=== PATIENT | male | born 1965 | race Caucasian/White ===

== ENCOUNTER → 2017-07-31 | Outpatient (CLI) | payer OTHER, BC ==
[~2017-07-31] MED LIST: AMOCLA875 PO; HYDACE5 PO; IBUP800; RXHYDACE PO; [UNRECOGNIZED DRUG - REMARK]
[2017-07-31 10:53] LABS: BASOPHILS ABSOLUTE AUTO 0.05 K/mm3 (0.00-0.23); BASOPHILS PERCENT AUTO 1 % (0-2); EOSINOPHILS ABSOLUTE AUTO 0.21 K/mm3 (0.00-0.68); EOSINOPHILS PERCENT AUTO 3 % (0-6); Hematocrit 46.5 % (37.0-53.0); Hemoglobin 16.5 g/dL (13.5-17.5); IMMATURE GRAN ABSOLUTE AUTO 0.02 K/mm3 (0.00-0.10); IMMATURE GRAN PERCENT AUTO 0 % (0-1); LYMPHOCYTES ABSOLUTE AUTO 2.45 K/mm3 (0.84-5.20); LYMPHOCYTES PERCENT AUTO 35 % (21-46); MONOCYTES ABSOLUTE AUTO 0.98 K/mm3 (0.16-1.47); MONOCYTES PERCENT AUTO 14 % (4-13); Mean Corpuscular HGB 31.8 pg (26.0-34.0); Mean Corpuscular HGB Conc 35.5 g/dL (31.5-36.5); Mean Corpuscular Volume 90 fL (80-100); Mean Platelet Volume 8.8 fL (9.1-12.4); NEUTROPHILS PERCENT AUTO 48 % (41-73); Platelet Count 277 K/mm3 (150-400); RDW Coefficient Variation 12.5 % (11.7-14.2); RDW Standard Deviation 41.1 fL (35.1-46.3); Red Blood Cell Count 5.19 M/mm3 (4.30-5.90); White Blood Cell Count 7.11 K/mm3 (4.00-11.30)
[2017-07-31 11:02] LABS: Alanine Aminotransfer (ALT/SGP 28 U/L (12-78); Albumin, Blood 3.6 g/dL (3.4-5.0); Alk Phos 69 U/L (40-126); Anion Gap 9 mmol/L (6-16); Aspartate Aminotrans (AST/SGOT 17 U/L (12-37); Bilirubin, Total 0.4 mg/dL (0.1-1.0); Blood Urea Nitrogen 13 mg/dL (8-24); Bun/Creatinine Ratio 13.3 (12.0-20.0); CO2, Blood 27 mmol/L (21-32); Calcium, Blood 9.2 mg/dL (8.5-10.1); Chloride, Blood 104 mmol/L (98-108); Creatinine, Blood 0.98 mg/dL (0.60-1.20); Globulin, Blood 3.7 g/dL (2.2-4.0); Glomerular Filtration Rate >60 (60-); Glucose, Blood 86 mg/dL (70-99); Potassium, Blood 4.4 mmol/L (3.5-5.5); Sodium, Blood 140 mmol/L (136-145); Total Protein, Blood 7.3 g/dL (6.4-8.2)
== END ==
LOC: LAB EV 10:47 → LAB SHORT 10:47
PROVIDERS: Physician Assistant Medical
DX: R10.84 Generalized abdominal pain (principal)
CPT/HCPCS: 80053; 83690; 85025

== ENCOUNTER → 2017-12-07 | Outpatient (CLI) | payer OTHER, BC | END | disposition home or self-care (01) | LOC: LAB EV 15:21 → LAB SHORT 15:21 | DX: R53.81 Other malaise (principal) | CPT/HCPCS: 87070 ==

== ENCOUNTER 2018-06-18 16:14 | Emergency (ER) | payer OTHER, BC ==
[~2018-06-18] VITALS: Ht 177.8 cm; Wt 99.8 kg
[2018-06-18 17:28] LABS: BASOPHILS ABSOLUTE AUTO 0.05 K/mm3 (0.00-0.23); BASOPHILS PERCENT AUTO 1 % (0-2); EOSINOPHILS ABSOLUTE AUTO 0.14 K/mm3 (0.00-0.68); EOSINOPHILS PERCENT AUTO 2 % (0-6); Hematocrit 46.5 % (37.0-53.0); Hemoglobin 16.1 g/dL (13.5-17.5); IMMATURE GRAN ABSOLUTE AUTO 0.03 K/mm3 (0.00-0.10); IMMATURE GRAN PERCENT AUTO 0 % (0-1); LYMPHOCYTES PERCENT AUTO 34 % (21-46); MONOCYTES ABSOLUTE AUTO 1.05 K/mm3 (0.16-1.47); MONOCYTES PERCENT AUTO 12 % (4-13); Mean Corpuscular HGB 31.5 pg (26.0-34.0); Mean Corpuscular HGB Conc 34.6 g/dL (31.5-36.5); Mean Corpuscular Volume 91 fL (80-100); Mean Platelet Volume 8.5 fL (9.1-12.4); NEUTROPHILS ABSOLUTE AUTO 4.38 K/mm3 (1.96-9.15); NEUTROPHILS PERCENT AUTO 51 % (41-73); Platelet Count 322 K/mm3 (150-400); RDW Coefficient Variation 12.5 % (11.7-14.2); RDW Standard Deviation 42.1 fL (35.1-46.3); Red Blood Cell Count 5.11 M/mm3 (4.30-5.90); White Blood Cell Count 8.55 K/mm3 (4.00-11.30)
[2018-06-18 17:50] LABS: Alanine Aminotransfer (ALT/SGP 66 U/L (12-78); Albumin/Globulin Ratio 1.2 (0.8-1.8); Alk Phos 74 U/L (50-136); Anion Gap 5 mmol/L (6-16); Aspartate Aminotrans (AST/SGOT 29 U/L (12-37); Bilirubin, Total 0.3 mg/dL (0.1-1.0); Blood Urea Nitrogen 13 mg/dL (8-24); Bun/Creatinine Ratio 15.7 (12.0-20.0); CO2, Blood 26 mmol/L (21-32); Calcium, Blood 8.9 mg/dL (8.5-10.1); Chloride, Blood 110 mmol/L (98-108); Creatinine, Blood 0.83 mg/dL (0.60-1.20); Globulin, Blood 3.2 g/dL (2.2-4.0); Glomerular Filtration Rate >60 (60-); Glucose, Blood 95 mg/dL (70-99); Sodium, Blood 141 mmol/L (136-145); Total Protein, Blood 7.2 g/dL (6.4-8.2)
[2018-06-18 17:52] LABS: Source, Urine Clean Catch
[2018-06-18 17:58] LABS: Appearance, Urine Clear (Clear); Bilirubin, Urine Neg (Neg); Blood, Urine Neg (Neg); Color, Urine Yellow (P-Yellow); Glucose Qualitative, Urine Neg (Neg); Ketones, Urine Neg (Neg); Leukocyte Esterase, Urine Neg (Neg); Nitrite, Urine Neg (Neg); Protein, Urine Neg (Neg); Urobilinogen, Urine NORM (Normal)
[2018-06-18] MEDS ORDERED: CEFP200 PO (21:41)
[2018-06-18] MEDS ORDERED: Flagyl500 MG PO (21:41)
[2018-06-18] MEDS ORDERED: VARE1 PO (22:07)
== END 2018-06-18 22:45 | disposition home or self-care (01) ==
LOC: ER 16:14
PROVIDERS: Physician Assistant
DX: K57.32 Diverticulitis of large intestine without perforation or abscess without bleeding (principal); Z88.5 Allergy status to narcotic agent; Z87.891 Personal history of nicotine dependence
CPT/HCPCS: 74177; 80053; 81003; 85025; 96365-59; 99284-25; A9270-GY; J2270; J2543; Q9967

== ENCOUNTER 2018-08-05 09:54 | Day surgery (SDC) | payer OTHER, BC ==
[~2018-08-05] VITALS: Ht 180.3 cm; Wt 99.9 kg
[~2018-08-05 09:54] MED LIST changes: +CEFP200 PO; +Flagyl500 MG PO; +VARE1 PO
--- NOTE | 2018-08-05 10:18 | NUR ---
Ambulatory in Day Surgery History, Chart, Medications and Allergies reviewed before start of procedure.Lungs clear T/O to Auscultation. Patient States Post-Procedure ride home has been arranged.
--- NOTE | 2018-08-05 12:01 | NUR ---
08/05/18 1201 Codi Luna History, Chart, Medications and Allergies reviewed before start of procedure.PATIENT DETERMINED TO BE ASA APPROPRIATE FOR PROPOFOL SEDATION PRIOR TO START OF PROCEDURE BY .MONITOR INTACT WITH CONTINUOUS PULSE OXIMETRY AND INTERMITTENT BP.3-LEAD EKG REVIEWED WITH PHYSICIAN PRIOR TO START OF PROCEDURE.O2 VIA N/C INTACT THROUGHOUT SEDATION/PROCEDURE.
--- NOTE | 2018-08-05 12:45 | NUR ---
Discharge instructions reviewed with patient. Patient verbalizes understanding. Copy given to patient to take home. Discharged via wheelchair to private car for ride home.PATIENT AND DENY CONCERN R/T DISCHARGE
== END 2018-08-05 22:50 | disposition home or self-care (01) ==
LOC: ORSCMMR 09:54 → ORD 10:30 → ORSCMMR 10:30
PROVIDERS: Internal Medicine Gastroenterology
PROC: 0DB98ZX Excision of Duodenum, Via Natural or Artificial Opening Endoscopic, Diagnostic (ICD-10-PCS; principal; 2018-08-05 10:30)
PROC: 0DBA8ZX Excision of Jejunum, Via Natural or Artificial Opening Endoscopic, Diagnostic (ICD-10-PCS; principal; 2018-08-05 10:30)
DX: R93.5 Abnormal findings on diagnostic imaging of other abdominal regions, including retroperitoneum (principal); K44.9 Diaphragmatic hernia without obstruction or gangrene; Z87.891 Personal history of nicotine dependence
CPT/HCPCS: 88305; 88342; J2704; J7120

== ENCOUNTER 2018-11-07 10:18 | Day surgery (SDC) | payer OTHER, BC ==
[~2018-11-07] VITALS: Ht 180.3 cm; Wt 98.4 kg
[2018-11-07] MEDS ORDERED: CEFU250T47 PO (10:56)
== END 2018-11-07 13:33 | disposition home or self-care (01) ==
LOC: ORSCSDS 10:18
PROVIDERS: Orthopaedic Surgery
PROC: 0LQ60ZZ Repair Left Lower Arm and Wrist Tendon, Open Approach (ICD-10-PCS; principal; 2018-11-07 11:30)
DX: S61.512A Laceration without foreign body of left wrist, initial encounter (principal); G47.33 Obstructive sleep apnea (adult) (pediatric); F17.210 Nicotine dependence, cigarettes, uncomplicated; Z79.899 Other long term (current) drug therapy
CPT/HCPCS: A9270-GY; J0690; J1100; J1885; J2250; J2370; J2405; J2704; J3010; J7120

== ENCOUNTER 2020-02-18 19:11 | Emergency (ER) | payer BC ==
[~2020-02-18] VITALS: Ht 180.3 cm; Wt 97.5 kg
[~2020-02-18 19:11] MED LIST changes: +CEFU250T47 PO
[2020-02-18 20:04] LABS: Alanine Aminotransfer (ALT/SGP 42 U/L (12-78); Albumin/Globulin Ratio 1.3 (0.8-1.8); Alk Phos 78 U/L (50-136); Anion Gap 8 mmol/L (6-16); Aspartate Aminotrans (AST/SGOT 29 U/L (12-37); Bilirubin, Total 0.4 mg/dL (0.1-1.0); Blood Urea Nitrogen 18 mg/dL (8-24); Bun/Creatinine Ratio 19.5 (12.0-20.0); CO2, Blood 23 mmol/L (21-32); Chloride, Blood 109 mmol/L (98-108); Creatinine, Blood 0.92 mg/dL (0.60-1.20); Glomerular Filtration Rate >60 (60-); Glucose, Blood 121 mg/dL (70-99); Potassium, Blood 3.7 mmol/L (3.5-5.5); Sodium, Blood 140 mmol/L (136-145)
[2020-02-18 20:09] LABS: BASOPHILS ABSOLUTE AUTO 0.04 K/mm3 (0.00-0.23); BASOPHILS PERCENT AUTO 1 % (0-2); EOSINOPHILS ABSOLUTE AUTO 0.21 K/mm3 (0.00-0.68); EOSINOPHILS PERCENT AUTO 2 % (0-6); Hematocrit 46.6 % (37.0-53.0); Hemoglobin 15.8 g/dL (13.5-17.5); IMMATURE GRAN ABSOLUTE AUTO 0.02 K/mm3 (0.00-0.10); IMMATURE GRAN PERCENT AUTO 0 % (0-1); LYMPHOCYTES ABSOLUTE AUTO 2.83 K/mm3 (0.84-5.20); LYMPHOCYTES PERCENT AUTO 33 % (21-46); MONOCYTES ABSOLUTE AUTO 1.08 K/mm3 (0.16-1.47); MONOCYTES PERCENT AUTO 12 % (4-13); Mean Corpuscular HGB Conc 33.9 g/dL (31.5-36.5); Mean Corpuscular Volume 92 fL (80-100); NEUTROPHILS PERCENT AUTO 52 % (41-73); Platelet Count 269 K/mm3 (150-400); RDW Coefficient Variation 12.6 % (11.7-14.2); RDW Standard Deviation 42.6 fL (35.1-46.3); Red Blood Cell Count 5.09 M/mm3 (4.30-5.90); White Blood Cell Count 8.68 K/mm3 (4.00-11.30)
[2020-02-18] MEDS ORDERED: AMOCLA875 PO (22:13)
== END 2020-02-18 22:35 | disposition home or self-care (01) ==
LOC: ER 19:11
PROVIDERS: Physician Assistant
DX: K57.32 Diverticulitis of large intestine without perforation or abscess without bleeding (principal); F17.200 Nicotine dependence, unspecified, uncomplicated; Z79.899 Other long term (current) drug therapy
CPT/HCPCS: 36415; 74177; 80053; 85025; 99284-25; A9270; Q9967

== ENCOUNTER 2020-12-12 16:48 | Inpatient (IN) | payer BC, OTHER ==
[~2020-12-12] VITALS: Ht 177.8 cm; Wt 92.4 kg
[2020-12-12] MEDS ORDERED: DEPO-TESTO200 MG/15 IM (17:11)
[2020-12-12 17:34] LABS: BASOPHILS ABSOLUTE AUTO 0.04 K/mm3 (0.00-0.23); BASOPHILS PERCENT AUTO 0 % (0-2); EOSINOPHILS ABSOLUTE AUTO 0.13 K/mm3 (0.00-0.68); EOSINOPHILS PERCENT AUTO 1 % (0-6); Hematocrit 52.2 % (37.0-53.0); Hemoglobin 17.7 g/dL (13.5-17.5); IMMATURE GRAN ABSOLUTE AUTO 0.03 K/mm3 (0.00-0.10); IMMATURE GRAN PERCENT AUTO 0 % (0-1); LYMPHOCYTES ABSOLUTE AUTO 2.89 K/mm3 (0.84-5.20); LYMPHOCYTES PERCENT AUTO 31 % (21-46); MONOCYTES ABSOLUTE AUTO 0.55 K/mm3 (0.16-1.47); MONOCYTES PERCENT AUTO 6 % (4-13); Mean Corpuscular HGB 31.4 pg (26.0-34.0); Mean Corpuscular HGB Conc 33.9 g/dL (31.5-36.5); Mean Corpuscular Volume 93 fL (80-100); Mean Platelet Volume 8.9 fL (9.1-12.4); NEUTROPHILS ABSOLUTE AUTO 5.75 K/mm3 (1.96-9.15); NEUTROPHILS PERCENT AUTO 61 % (41-73); Platelet Count 313 K/mm3 (150-400); RDW Coefficient Variation 12.9 % (11.7-14.2); RDW Standard Deviation 43.9 fL (35.1-46.3); Red Blood Cell Count 5.64 M/mm3 (4.30-5.90); White Blood Cell Count 9.39 K/mm3 (4.00-11.30)
[2020-12-12 17:54] LABS: Alanine Aminotransfer (ALT/SGP 38 U/L (12-78); Albumin, Blood 3.3 g/dL (3.4-5.0); Albumin/Globulin Ratio 0.9 (0.8-1.8); Alk Phos 60 U/L (50-136); Anion Gap 4 mmol/L (6-16); Aspartate Aminotrans (AST/SGOT 33 U/L (12-37); Bilirubin, Total 0.5 mg/dL (0.1-1.0); Blood Urea Nitrogen 10 mg/dL (8-24); Bun/Creatinine Ratio 10.7 (12.0-20.0); CO2, Blood 30 mmol/L (21-32); Calcium, Blood 8.9 mg/dL (8.5-10.1); Chloride, Blood 108 mmol/L (98-108); Creatinine, Blood 0.93 mg/dL (0.60-1.20); Globulin, Blood 3.5 g/dL (2.2-4.0); Glomerular Filtration Rate >60 (60-); Glucose, Blood 118 mg/dL (70-99); Potassium, Blood 3.9 mmol/L (3.5-5.5); Sodium, Blood 142 mmol/L (136-145); Total Protein, Blood 6.8 g/dL (6.4-8.2); Troponin I <0.015 ng/mL (0.000-0.040)
[2020-12-12] MEDS ORDERED: MULTI-VITAMIN1 EAC2 PO (18:51)
[2020-12-12 21:33] LABS: SARS-Cov-2 (COVID-19) PCR, MMC POSITIVE (NEGATIVE)
--- NOTE | 2020-12-12 22:50 | NUR ---
CRITICAL LACTIC ACID: PT REPEAT LACTIC ACID WAS 2.3. DR DIANA NOTIFIED THAT LEVEL HAD SLIGHTLY DECREASED, BUT IS SITLL CRITICAL. CLARIFIED IVF ORDERS. ORDER TO CONT W/NS 200 ML/HR FOR 2 LITERS, THEN START MIVF AT 150 ML/HR PER CURRENT ORDERS.
[2020-12-13 04:26] LABS: BASOPHILS ABSOLUTE AUTO 0.04 K/mm3 (0.00-0.23); BASOPHILS PERCENT AUTO 1 % (0-2); Hemoglobin 19.1 g/dL (13.5-17.5); LYMPHOCYTES ABSOLUTE AUTO 0.62 K/mm3 (0.84-5.20); LYMPHOCYTES PERCENT AUTO 13 % (21-46); MONOCYTES ABSOLUTE AUTO 0.65 K/mm3 (0.16-1.47); MONOCYTES PERCENT AUTO 14 % (4-13); Mean Corpuscular HGB 31.7 pg (26.0-34.0); Mean Corpuscular Volume 93 fL (80-100); Mean Platelet Volume 8.7 fL (9.1-12.4); Platelet Count 294 K/mm3 (150-400); RDW Coefficient Variation 13.1 % (11.7-14.2); RDW Standard Deviation 44.6 fL (35.1-46.3); Red Blood Cell Count 6.03 M/mm3 (4.30-5.90)
[2020-12-13 04:31] LABS: EOSINOPHILS PERCENT AUTO 0 % (0-6); Hematocrit 56.2 % (37.0-53.0); IMMATURE GRAN ABSOLUTE AUTO 0.01 K/mm3 (0.00-0.10); IMMATURE GRAN PERCENT AUTO 0 % (0-1); NEUTROPHILS ABSOLUTE AUTO 3.38 K/mm3 (1.96-9.15); NEUTROPHILS PERCENT AUTO 72 % (41-73)
[2020-12-13 04:51] LABS: Anion Gap 6 mmol/L (6-16); Blood Urea Nitrogen 15 mg/dL (8-24); CO2, Blood 27 mmol/L (21-32); Calcium, Blood 8.4 mg/dL (8.5-10.1); Chloride, Blood 108 mmol/L (98-108); Creatinine, Blood 1.07 mg/dL (0.60-1.20); Glomerular Filtration Rate >60 (60-); Glucose, Blood 128 mg/dL (70-99); Potassium, Blood 5.1 mmol/L (3.5-5.5); Sodium, Blood 141 mmol/L (136-145)
--- NOTE | 2020-12-13 07:36 | NUR ---
PT NEW ADMIT THIS SHIFT FOR PERF DIVERTICULITIS. PT HR TACHY 120'S THIS AM, PT DENIED CP/PRESSURE/SOB. T-MAX 100.2, 2LO2 NC IN PLACE TO KEEPSATS >90%. ABD DISTENDED, GUARDED, PT REP PAIN ACCROSS LOWER ABD. PAIN MGD PER EMAR W/SOME IMPROVEMENT. PT DENIED N/V. PT NPO SINCE ARRIVING TO FLOOR, IVF AND ABX CONT PER ORDERS. AWAITING SURGERY THIS AM.
--- NOTE | 2020-12-13 17:49 | NUR ---
12/13/20 1749 Jay Bender PT ON SCHEDULED ANTIBIOTICS
--- NOTE | 2020-12-13 22:08 | NUR ---
ASSUMPTION OF CARE PT ARRIVED AT 192 FROM OR. RECEIVED REPORT FROM RYAN RODRIGUEZ AND DR. MANUEL. PT IS INTUBATED, PARALYZED AND SEDATED. PARALYTIC AND SEDATION GIVEN IN OR. PROPOFOL STARTED, TITRATED UP TO 50MCG/KG/MIN DUE TO PT WAKING UP AND HR IN 150'S. PRN VERSED AND FENTANYL GIVEN X1. PT NOW ADEQUATELY SEDATED TO TOLERATE VENT. VENT AC: 16/480/5/55%, SPO2 91-92%. LUNGS CLEAR BILATERAL UPPERS, DIMINISHED IN BASES. HR SINUS TACH IN 120'S. BP NORMOTENSIVE WITH MAP >65. MIDLINE ABDOMINAL INCISION, C/D/I WITH TAY ATTACHED. COLOSTOMY IN RLQ, STOMA BRIGHT RED, NO DRAINAGE. BOWEL TONES ABSENT X4 QUADRANTS. OG PLACED, BILE RETURN AND ASCULATED AIR, CHEST XR COMPLETED AND REVIEWED BY DR. SANTOS. CALIX PATENT, DRAINING CLEAR YELLOW URINE. PT AFEBRILE. ORDERS REVIEWED, WILL TREAT PRESCRIBED.
[2020-12-13 23:19] LABS: PCO2 Arterial 40.8 mmHg (35-45); PO2 Arterial 91.9 mmHg (80-100); pH Blood Arterial 7.38 (7.35-7.45)
--- NOTE | 2020-12-14 00:41 | NUR ---
FIO2 DECREASED TO 50%, SPO2 94%. MODERATE AMOUNT OF CLEAR SECRETIONS WITH ETT SUCTION. LUNG SOUNDS CLEAR T/O, DIM IN BASES. HR CONTINUES SINUS TACH IN 120-130'S, INCREASES WITH REPOSITIONING. PT GIVEN PRN FENTANYL X1 FOR INCREASE IN COUGHING/PAIN. SMALL AMOUNT OF BLOOD ON ABDOMINAL DRESSING, COLOSTOMY REMAINS BEEFY RED AND BAG INTACT WITH MINIMAL SEROSANGUINEOUS DRAINAGE IN BAG. CALIX PATENT, DRAINING YELLOW CLEAR URINE. PT REMAINS AFEBRILE.
[2020-12-14 03:33] LABS: BASOPHILS ABSOLUTE AUTO 0.07 K/mm3 (0.00-0.23); BASOPHILS PERCENT AUTO 1 % (0-2); Hematocrit 47.6 % (37.0-53.0); Hemoglobin 15.8 g/dL (13.5-17.5); LYMPHOCYTES ABSOLUTE AUTO 0.67 K/mm3 (0.84-5.20); LYMPHOCYTES PERCENT AUTO 5 % (21-46); MONOCYTES ABSOLUTE AUTO 0.75 K/mm3 (0.16-1.47); MONOCYTES PERCENT AUTO 6 % (4-13); Mean Corpuscular HGB 31.3 pg (26.0-34.0); Mean Corpuscular HGB Conc 33.2 g/dL (31.5-36.5); Mean Corpuscular Volume 94 fL (80-100); Mean Platelet Volume 8.6 fL (9.1-12.4); Platelet Count 240 K/mm3 (150-400); RDW Coefficient Variation 13.4 % (11.7-14.2); RDW Standard Deviation 47.1 fL (35.1-46.3); Red Blood Cell Count 5.04 M/mm3 (4.30-5.90); White Blood Cell Count 13.66 K/mm3 (4.00-11.30)
[2020-12-14 03:34] LABS: EOSINOPHILS PERCENT AUTO 0 % (0-6); IMMATURE GRAN ABSOLUTE AUTO 0.09 K/mm3 (0.00-0.10); IMMATURE GRAN PERCENT AUTO 1 % (0-1); NEUTROPHILS ABSOLUTE AUTO 12.08 K/mm3 (1.96-9.15); NEUTROPHILS PERCENT AUTO 88 % (41-73)
[2020-12-14 03:51] LABS: Albumin, Blood 2.8 g/dL (3.4-5.0); Albumin/Globulin Ratio 1.1 (0.8-1.8); Bilirubin, Total 0.7 mg/dL (0.1-1.0); Bun/Creatinine Ratio 17.3 (12.0-20.0); Calcium, Blood 7.8 mg/dL (8.5-10.1); Creatinine, Blood 1.39 mg/dL (0.60-1.20); Globulin, Blood 2.6 g/dL (2.2-4.0); Potassium, Blood 4.8 mmol/L (3.5-5.5); Total Protein, Blood 5.4 g/dL (6.4-8.2)
[2020-12-14 04:47] LABS: PCO2 Arterial 40.4 mmHg (35-45); PO2 Arterial 94.6 mmHg (80-100); pH Blood Arterial 7.42 (7.35-7.45)
--- NOTE | 2020-12-14 06:23 | NUR ---
WEAN/EXTUBATION, SHIFT SUMMARY Sedation decreased to off, wean initiated per RT @ 0400. Pt tolerated well, able to follow commands, and alert and oriented. Sats maintained above 90% on FiO2 of 40%. ABG drawn and within normal limits. Dr. Jin notified and orders received to extubate. Extubated at 0500. Pt remains A&Ox3, pleasant and cooperative. 2L via NC placed and SpO2 96%. Lungs clear t/o, dim in bases, coarse at times but clear with coughing. Pt using pillow to guard when coughing. HR continues SR/ST, now decreased in 100's. BP hypertensive, SBP in 150's, likely r/t increased pain. Medicated with PRN Fentanyl and Toradol. OG removed, 250ml bile out, currently NPO. Abdomen incision C/D/I with minimal blood on dressing, stoma red and colostomy bag intact with minimal serosanguineous drainage. Bowel tones hypoactive. Mullins patent, 2400ml out this shift, color improved to yellow, clear. Pt remains afebrile. Will give report to oncoming RN.
--- NOTE | 2020-12-14 11:08 | NUR ---
PATIENT WAS TRANSFERRED FROM ICU TO ROOM 211 TODAY 12/14/20 AT 1030. POD 1 SIGMOID COLECTOMY WITH COLOSTOMY PATIENT IS ALERT AND ORIENTED X4. ABD IS TENDER TO TOUCH. OSTOMY IS ON THE LEFT LOWER QUADRANT AND HAS A TAY DOWN THE MIDLINE. OSTOMY AND MIDLINE ARE INTACT. PAIN MANAGEMENT IS CONTROLLED WITH MARRIAGE THERAPIST PUMP FENTANYL AT THIS TIME. HE IS CURRENTLY LAYING IN BED. CALL LIGHT WITHIN REACH.
--- NOTE | 2020-12-14 14:16 | NUR ---
SHIFT SUMMARY: POD 1 SIGMOID COLECTOMY WITH OSTOMY NO SIGNIFICANT CHANGES SINCE TRANSFER FROM ICU. HE IS ALERT AND ORIENTED X4. PAIN IS MANAGED WITH HAND REAMER FENTANYL. HE ALSO HAD A MIGRAINE EARLIER THAT HAS BEEN MANAGED WITH FIORICET. TAY DOWN THE MIDLINE OF ABD THAT IS C/D/I. OSTOMY IS IN THE LLQ WITH SMALL AMOUNT OF RED OUTPUT. CALIX IS IN PLACE AND HAD SOME DARK COLORED URINE. HE IS CURRENTLY RESTING COMFORTABLY IN BED. CALL LIGHT WITHIN REACH. THE PLAN IS TO CONTINUE ABX AND ENCOURAGE DEEP BREATHING.
[2020-12-15 04:34] LABS: BASOPHILS ABSOLUTE AUTO 0.02 K/mm3 (0.00-0.23); BASOPHILS PERCENT AUTO 0 % (0-2); EOSINOPHILS PERCENT AUTO 0 % (0-6); Hematocrit 39.3 % (37.0-53.0); Hemoglobin 13.6 g/dL (13.5-17.5); IMMATURE GRAN ABSOLUTE AUTO 0.05 K/mm3 (0.00-0.10); IMMATURE GRAN PERCENT AUTO 0 % (0-1); LYMPHOCYTES PERCENT AUTO 8 % (21-46); MONOCYTES ABSOLUTE AUTO 0.58 K/mm3 (0.16-1.47); MONOCYTES PERCENT AUTO 5 % (4-13); Mean Corpuscular HGB 31.6 pg (26.0-34.0); Mean Corpuscular HGB Conc 34.6 g/dL (31.5-36.5); Mean Corpuscular Volume 91 fL (80-100); Mean Platelet Volume 8.7 fL (9.1-12.4); NEUTROPHILS ABSOLUTE AUTO 10.07 K/mm3 (1.96-9.15); NEUTROPHILS PERCENT AUTO 87 % (41-73); Platelet Count 212 K/mm3 (150-400); RDW Coefficient Variation 13.3 % (11.7-14.2); RDW Standard Deviation 45.5 fL (35.1-46.3); Red Blood Cell Count 4.31 M/mm3 (4.30-5.90); White Blood Cell Count 11.62 K/mm3 (4.00-11.30)
[2020-12-15 04:50] LABS: Anion Gap 4 mmol/L (6-16); Blood Urea Nitrogen 18 mg/dL (8-24); Bun/Creatinine Ratio 17.6 (12.0-20.0); CO2, Blood 28 mmol/L (21-32); Chloride, Blood 106 mmol/L (98-108); Creatinine, Blood 1.02 mg/dL (0.60-1.20); Glomerular Filtration Rate >60 (60-); Glucose, Blood 78 mg/dL (70-99); Potassium, Blood 3.8 mmol/L (3.5-5.5); Sodium, Blood 138 mmol/L (136-145)
--- NOTE | 2020-12-15 05:53 | NUR ---
SHIFT SUMMARY PT A&O X4 AND IN PLEASENT MOOD T/O SHIFT. PT VSS. BOWEL TONES ARE HYPOACTIVE, AND ABD DISTENDED. PT TOLERATING SIPS AND CHIPS WELL. CALL LIGHT W/IN REACH. OSTOMY PINK AND W/IN NORM LIMITS, MIN OUTPUT NOTED.
--- NOTE | 2020-12-15 15:44 | NUR ---
SHIFT SUMMARY POD2 SIG COLECTOMY WITH OSTOMY. NO OUTPUT AT THIS TIME. CALIX DISCONTINUED AND PT REPORTS VOIDING. PT UP AMBULATING AND SHOWERED TODAY. PC ANALYST DISCONTINUED AND IV PAIN MEDICATION BEING ADMINISTERED PER EMAR NEEDED. PT TOLERATING SIPS AND CHIPS. MIDLINE TAY DRESSING C/D/I. ABDOMEN TENDER AND DISTENDED, BOWEL TONES PRESENT IN ALL 4 QUADRANTS.
[2020-12-15 17:10] LABS: SARS COV-2 IGM AB Negative (Negative)
--- NOTE | 2020-12-16 06:10 | NUR ---
VSS. PAIN MANAGED WITH FENTANYL & TORADOL. VOIDING W/ URINAL. PT BEGAN PASSING GAS OVERNIGHT. OSTOMY BAG 'BURPED' X3. MINIMAL LIQUID OUTPUT FROM OSTOMY.
--- NOTE | 2020-12-16 15:30 | NUR ---
Discussed fiber recommendations and what foods have fiber. Discussed what foods/eating habits can cause gas, bloating, or rapid GI transit. Discussed chewable multivitamin and chewable/liquid calcium recommendations. Pt dedicated to following recommended diet. Pt plans to keep food diary to determine what foods cause adverse symptoms. Excellent adherence expected.
--- NOTE | 2020-12-16 18:30 | NUR ---
SHIFT SUMMARY PT POD #3 FOR SIGMOID COLECTOMY WITH A NEW OSTOMY. OSTOMY IS PUTTING OUT GAS AND MORE STOOL. PT REPORTS MORE PAIN TODAY THAN YESTERDAY. TREATED FOR PAIN PER EMR. PT IND IN ROOM AND AMBULATES IN THE ENGLISH. ADVANCED TO CLEAR LIQUID DIET AND TOLERATING WELL. PT EXPERIENCED SOME NAUSEA BUT THAT HAS SINCE SUBSIDED. VSS. WILL REPORT TO MARIBEL DAVIS.
--- NOTE | 2020-12-17 06:47 | NUR ---
VSS. PAIN MANAGEMENT W/ TORADOL & FENTANYL & FIORICET (SEE MAR). +FLATUS/SMALL BM THROUGH OSTOMY BAG. +SHOWER. AMBULATES IND. NO EVENTS OVERNIGHT.
[2020-12-17 10:10] LABS: SARS COV-2 IGG AB Negative (Negative)
--- NOTE | 2020-12-17 11:59 | NUR ---
OSTOMY APPLIANCE LEAKING AT AROUND 0930. MIDLINE TAY REMOVED AND WOUND CLEANSED. TAY WOUND VAC REPLACED AND IS NOW CDI WITH GOOD SEAL. OSTOMY APPLIANCE REMOVED AND SOURROUNDING SKIN CLEANSED. STOMA IS RED AND BEEFY, SCANT OUTPUT. PT TAUGHT ABOUT APPLIANCE AND HOW TO CREATE GOOD SEAL. PT RECEPTIVE. NEW APPLIANCE NOW IN PLACE, WILL CTM.
--- NOTE | 2020-12-17 16:14 | NUR ---
SUMMARY: PT IS POD4 SIG COLECTOMY. PT IS A/O, VSS, INDEP IN ROOM. ABD IS DISTENDED, HYPOACTIVE. PT HAS HAD INTERMITTANT NAUSEA WITH FULL LIQ DIET TODAY, RESLOVES WITH ZOFRAN. MINIMAL OUTPUT FROM STOMA, FLATUS +. PAIN IS CONTROLED WELL WITH FENTANYAL ABOUT Q3 AND TORADOL Q8. NO ACUTE SAFETY CONCERNS.
--- NOTE | 2020-12-17 18:53 | NUR ---
PT FILLED OUT RELEASE OF MEDICAL RECORDS FORM, SHEET SENT TO MEDICAL RECORDS.
--- NOTE | 2020-12-18 05:14 | NUR ---
SHIFT SUMMARY POD 5 FOR SIGMOID COLECTOMY W/OSTOMY. MIDLINE TAY IN TACT. 2.5 X 5 CM SEROSANGINOUS FLUID ON BOTTOM OF DRESSING WHICH IS APPROX. DOUBLED FROM BEGINNING OF SHIFT. TAY NOT CURRENTLY SUCITIONING DUE TO OSTOMY APPLIANCE. OSTOMY IN PLACE AND FUNCTIONING. PT REPORTS GAS IN BAG. STOMA IS RED AND BEEFY. MINIMAL LIQUID BROWN DRAINAGE. PT HAS REPORTED PAIN THROUGHOUT SHIFT. FENTANYL WAS NOT PROVIDING PAIN MANAGEMENT. NEW ORDER FOR PERCOCET OBTAINED AND PT STATES PAIN IS BETTER MANAGED. PT IS A&O X4 AND VERY PLEASANT. DISCUSSED QUESTIONS REGARDING OSTOMY AND SUPPLIES. PT WOULD LIKE TO BE HERE WHEN HE IS DISCHARGED SO SHE CAN GET EDUCATION ON OSTOMY CARE WELL. PT CURRENTLY RESTING IN BED AND CALL LIGHTIS WITHIN REACH.
--- NOTE | 2020-12-18 18:15 | NUR ---
SUMMARY: PT IS POD5 SIG COLECTOMY. A/O, VSS, INDEP IN ROOM. WOUND DRESSING CHANGED TODAY TO MEDIPORE, THERE IS SOME OOZING OF SS OUTPUT AT SURGICAL SITE. DRESSING DRY, INTACT AT THIS TIME. STOMA WNL, MINIMAL OUTPUT. OSTOMY APPLIANCE CHANGED TODAY WITH PT IN ROOM. PT AND PT EDUCATED AND COACHED THROUGH THE PROCESS OF PLACING APPLIANCE. PT LEFT ROOM AFTER TEACHING. PT ENCOURAGED TO WALK TODAY AND OFFERED BINDER. PAIN SEEMS TO BE MANAGED WELL WITH 2 PERCOCETS. PT CONTINUES TO HAVE SOME INTERMITTANT NAUSEA AT THE START OF MEALS. NO ACUTE SAFETY CONCERNS, WILL REPORT TO NOC RN
--- NOTE | 2020-12-19 04:22 | NUR ---
ROUNDED ON PT AND PT WAS CURLED UP IN PAIN IN BED MOANING. PT REPORTED PAIN IN LOWER ABD A 10/10 ON PAIN SCALE. MEDICATED PER EMAR W/ FENTANYL AND PERCOCET WHICH DROPPED PT'S PAIN TO A 6/10 ON PAIN SCALE. PT DENIES MUCH GAS TONIGHT LAST NIGHT AND PT APPEARS TO NOT HAVE GOTTEN MUCH REST THIS SHIFT. PT STATES IT IS BECAUSE HE HAS TO "PEE ALL THE TIME". PT REPORTS ABD IS STILL DISTENDED AND TENDER TO TOUCH. STILL MINIMAL LIGHT BROWN/SEROSANGINOUS OUTPUT. MODERATE AMOUNT OF SEROSANGINOUS DRAINAGE ON MEDIPORE AFTER CHANGE AT BEGINNING OF SHIFT. DISCUSSED W/PT WHAT MAY HAVE TRIGGERED THIS INCREASED PAIN AND DIFFICULTY RESTING. DISCUSSED DIET AND IF PT NOTICED A FOOD OR TYPE OF FOOD THAT EXACERBATED HIS PAIN. PT DENIES ANY FOOD THAT HE NOTICED. DISCUSSED POSSIBLY GOING BACK TO CLEAR LIQUID TO SEE IF HE IS ABLE TO REDUCE PAIN BEFORE ADVANCING TO FULL LIQUID AGAIN. PT AGREED THAT MAY HELP AND WILLING TO TRY. PT ALSO HAD CHILLS DURING EPISODE. ONCE RECEIVED MEDICATION EFFECTS CHILLS WENT AWAY AND PT IS NOW CURRENTLY RESTING IN BED. TEMP WNL.
--- NOTE | 2020-12-19 04:38 | NUR ---
SHIFT SUMMARY POD 5 FOR SIGMOID COLECTOMY W/OSTOMY. PT A&O X4. MIDLINE TAY DRESSING IN PLACE WITH MODERATE AMOUNT OF SEROSANGINOUS DRAINAGE IN LOWER AREA SINCE DRESSING CHANGE AT BEGINNING OF SHIFT. OSTOMY IN PLACE W/GOOD SEAL. STOMA IS BEEFY AND RED. MINIMAL LIQUID BROWN DRAINAGE NOTED W/O OUTPUT. PT REPORTS SOME NAUSEA AND WAS TREATED X1 PER EMAR DURING SHIFT. PT HAS NOT RESTED MUCH DURING SHIFT AND HAD AN EPISODE OF INTENSE PAIN. PT WAS MEDICATED PER EMAR WHICH HELPED REDUCE PAIN TO A TOLERABLE LEVEL. DISCUSSED W/PT WHAT MAY HAVE EXACERBATED HIS PAIN LEVEL. DISCUSSED POSSIBLY TRYING A CLEAR LIQUID DIET AGAIN TO SEE IF THAT HELPS. PT IS WILLING TO TRY. PT APPEARS TO CURRENTLY BE ASLEEP. WILL GIVE REPORT TO DAY SHIFT NURSE.
--- NOTE | 2020-12-19 18:17 | NUR ---
SHIFT SUMMARY PT HAS BEEN UPBEAT TODAY. UP MOVING AROUND IN ROOM FREQ & x 2 WALKS IN HALLWAYS. ONLY GAS THRU OSTOMY. NO LQ OR STOOL. PT BURPING OSTOMY ON OWN. WAS INTERESTED IN EDUCATION. GAVE PT APPLIANCE TO PRACTICE WITH & SPENT TIME DISCUSSING OSTOMY. TOLERATING FULL LQ's WELL, BUT DOES REQUEST NAUSEA MEDS PRIOR TO ALL MEALS.
[2020-12-20 05:35] LABS: BASOPHILS ABSOLUTE AUTO 0.07 K/mm3 (0.00-0.23); BASOPHILS PERCENT AUTO 1 % (0-2); EOSINOPHILS ABSOLUTE AUTO 0.11 K/mm3 (0.00-0.68); EOSINOPHILS PERCENT AUTO 1 % (0-6); Hematocrit 44.5 % (37.0-53.0); IMMATURE GRAN ABSOLUTE AUTO 0.59 K/mm3 (0.00-0.10); IMMATURE GRAN PERCENT AUTO 4 % (0-1); LYMPHOCYTES ABSOLUTE AUTO 1.62 K/mm3 (0.84-5.20); LYMPHOCYTES PERCENT AUTO 11 % (21-46); MONOCYTES ABSOLUTE AUTO 1.43 K/mm3 (0.16-1.47); MONOCYTES PERCENT AUTO 10 % (4-13); Mean Corpuscular HGB 30.7 pg (26.0-34.0); Mean Corpuscular HGB Conc 33.7 g/dL (31.5-36.5); Mean Corpuscular Volume 91 fL (80-100); Mean Platelet Volume 8.6 fL (9.1-12.4); NEUTROPHILS ABSOLUTE AUTO 10.35 K/mm3 (1.96-9.15); NEUTROPHILS PERCENT AUTO 73 % (41-73); Platelet Count 445 K/mm3 (150-400); RDW Coefficient Variation 13.9 % (11.7-14.2); RDW Standard Deviation 46.9 fL (35.1-46.3); Red Blood Cell Count 4.88 M/mm3 (4.30-5.90); White Blood Cell Count 14.17 K/mm3 (4.00-11.30)
[2020-12-20 05:49] LABS: Anion Gap 3 mmol/L (6-16); Blood Urea Nitrogen 11 mg/dL (8-24); Bun/Creatinine Ratio 12.2 (12.0-20.0); CO2, Blood 33 mmol/L (21-32); Calcium, Blood 8.6 mg/dL (8.5-10.1); Chloride, Blood 101 mmol/L (98-108); Glomerular Filtration Rate >60 (60-); Glucose, Blood 98 mg/dL (70-99); Magnesium, Blood 2.1 mg/dL (1.6-2.4); Phosphorus, Blood 3.1 mg/dL (2.5-4.9); Potassium, Blood 4.4 mmol/L (3.5-5.5); Sodium, Blood 137 mmol/L (136-145)
--- NOTE | 2020-12-20 06:12 | NUR ---
LYING IN SEMI FOWLERS WITH EYES CLOSED. HAS RESTED WELL THIS SHIFT. AMBULATED IN HALLWAY AT START OF SHIFT TO VISIT WITH . AMBULATED TO BATHROOM SEVERAL TIMES TO URINATE, TOLERATED WELL. COLOSTOMY CARE PERFORMED BY PT. ABLE TO BURP BAG OF FLATUS. SMALL AMOUNT OF BROWN LIQUID NOTED IN OSTOMY BAG. VERY UPBEAT AND PLEASANT WHEN SPEAKING ABOUT OSTOMY AND SURGERY. STATED PAIN HAS IMPROVED SINCE ONSET OF DIVERTICULAR PAIN AND FOLLOWING SURGERY. DENEIS PAIN, DISCOMFORT, OR FURTHER NEEDS AT THIS TIME. SAFETY MEASURES IN PLACE. WILL CONTINUE TO MONITOR AND ADDRESS NEEDS THEY ARISE. WILL GIVE HAND OFF TO ONCOMING SHIFT USING SBAR DURING BEDSIDE REPORT.
--- NOTE | 2020-12-20 17:09 | NUR ---
SHIFT SUMMARY PT HAS DONE WELL TODAY. SHOHWER, AMBULATED SEVERAL TIMES, PAIN WELL MANAGED w/ PERCOCET. STILL REQUESTS ZOFRAN ROUTINELY w/ PAIN MEDS. ONLY GAS & A VERY SCANT AMOUNT OF LQ THRU OSTOMY. ABD DISTENDED BUT NOT MORE SO THAN THIS AM AFTER ADVANCING TO REG DIET. PT DID EMPTY OWN OSTOMY BAG & BURP HIS OWN OSTOMY TODAY.
--- NOTE | 2020-12-21 05:58 | NUR ---
PATIENT MEDICATED X 3 FOR PAIN. PATIENT SLEPT WELL DURING THE NIGHT. VITAL SIGNS ARE STABLE. THERE IS NO SIGN OF DISTRESS. WILL CONTINUE TO MONITOR.
--- NOTE | 2020-12-21 11:33 | NUR ---
OSTOMY COLOSTOMY IS STARTING TO HAVE OUTPUT. SMALL PELLET LIKE STOOL w/ SOME LIQUID AROUND. PT PROUDLY EMPTIED OWN OSTOMY, UNMEASURED.
--- NOTE | 2020-12-21 15:13 | NUR ---
SHIFT SUMMARY PT IS DOING WELL. OSTOMY HAS STARTED TO PRODUCE STOOL & LQ. PT IS EMPTYING OSTOMY INDEPENDENTLY. AMBULATING FREQ. USING LESS ZOFRAN THEN IN DAYS PASSED. TOLERATING REG DIET w/ NO NAUSEA. PLAN FOR D/C TOMORROW IF OSTOMY CONT's TO PRODUCE.
--- NOTE | 2020-12-21 18:08 | NUR ---
REPORT RECEIVED FROM RYAN DE LA ROSA. ASSUMED CARE AT ABOUT 1700.
--- NOTE | 2020-12-21 18:09 | NUR ---
SUMMARY: NO ACUTE CHANGE SINCE ASSUMED CARE. PT SHOWERED TONIGHT AND NEEDED OSTOMY APPLIANCE CHANGED AND NEW MIDLINE DRESSING. SITES ARE NOW CDI. SMALL PELLET OF STOOL NOTED IN OSTOMY BAG. PT IS A/O, VSS. WILL REPORT TO MARIBEL RN.
--- NOTE | 2020-12-21 21:55 | NUR ---
PAIN: PT C/O INCREASED PAIN SINCE THIS AFTERNOON. PT REP SEVERE LLQ ABD PAIN W/ANY MVMT. PT GUARDED AND TEARFUL W/MVMT. PT REP PAIN INC W/LIGHT PALP, BUT REP IS ABLE TO HAVE SOME RELIEF AT TIMES W/LIGHT PRESSURE APPLIED. DR TO NOTIFIED, PT PAIN, VITALS, LABS AND PREV IMAGING REV. PLAN TO CONT TO CLOSELY MONITOR AND TX PER EMAR AND NOTIFY MD FOR FURTHER CONCERNS/CHANGES.
--- NOTE | 2020-12-21 23:00 | NUR ---
ABD BINDER PLACED. PT REP LESS DISCOMFORT W/BINDER IN PLACE. STOMA WNL. WILL MONITOR OUTPUT.
--- NOTE | 2020-12-22 06:17 | NUR ---
POD 9 S/P COLECTOMY+COLOSTOMY. PT VSS T/O NIGHT. DRESSING CDI. OSTOMY PUT OUT 1 SMALL PELLET, OTHERWISE NO OUTPUT OR GAS. PT STRUGGLED W/PAIN EARLY IN SHIFT, PT REP PAIN SOMEWHAT IMPROVED W/PRESSURE APPLIED, ABD BINDER PROVIDED FOR PT COMFORT. PAIN MGD W/PO AND IV PAIN MEDS. PT HAD NO C/O N/V. PT REP SOME DIFFICULTY VOIDING URINE R/T PAIN, DENIES PAIN W/VOIDS.
--- NOTE | 2020-12-22 11:27 | NUR ---
REPORTS FEELING "MUCH BETTER" AMBULATING DOWN THE HALLS.
[2020-12-22] MEDS ORDERED: OXYC5 PO (13:05)
--- NOTE | 2020-12-22 15:28 | NUR ---
DC'D HOME, DC INSTRUCTIONS GIVEN, VERBALIZED UNDERSTANDING, MIMI DC'D, CATH INTACT, OSTOMY SUPPLIES GIVEN, PT STATES HE AND HIS FEEL COMFORTABLE MANAGING OSTOMY AT HOME, HOME HEALTH TO FOLLOW, PT STATES HE HAS NO PREFERENCE OVER [facility] OR [facility], LEFT A MESSAGE WITH RYAN ARCOSCIVIL ENGINEER [employer].
== END 2020-12-22 15:15 | disposition home health service (06) | DRG 853 ==
LOC: ER 16:48 → SURS 21:05 → ICUW 21:05 → SURS 21:45 → ICUW 12-13 19:24 → SURS 12-14 11:04
PROVIDERS: Hospitalist; Internal Medicine Critical Care Medicine; Physician Assistant; Surgery; ADMIT Surgery
PROC: 0DBN0ZZ Excision of Sigmoid Colon, Open Approach (ICD-10-PCS; principal; 2020-12-13 16:00)
PROC: 0D1M0Z4 Bypass Descending Colon to Cutaneous, Open Approach (ICD-10-PCS; 2020-12-13 16:00)
DX: A41.9 Sepsis, unspecified organism (principal); K65.0 Generalized (acute) peritonitis; K57.20 Diverticulitis of large intestine with perforation and abscess without bleeding; K56.7 Ileus, unspecified; Z20.822 Contact with and (suspected) exposure to COVID-19; F17.210 Nicotine dependence, cigarettes, uncomplicated; Z98.890 Other specified postprocedural states; Z79.899 Other long term (current) drug therapy; Z87.81 Personal history of (healed) traumatic fracture; Z86.16 Personal history of COVID-19
CPT/HCPCS: 36415; 36600; 71045; 71275; 74175; 74176; 74177; 80048; 80053; 82803; 82947; 83605; 83690; 83735; 84100; 84484; 85025; 86769; 87040; 87076; 88307; 93005; 93010; 94002; 94003; 94640; 94760; 96365-59; 96375-59; 96376-59; 99285-25; A9270; C1751; C9113; J1100; J1170; J1650; J1885; J1956; J2250; J2370; J2405; J2543; J2704; J3010; J7030; J7040; J7120; P9046; Q9967; U0004

== ENCOUNTER 2021-07-03 10:34 | Day surgery (SDC) | payer BC, OTHER ==
[~2021-07-03] VITALS: Ht 180.3 cm; Wt 100.1 kg
[~2021-07-03 10:34] MED LIST changes: +DEPO-TESTO200 MG/15 IM; +MULTI-VITAMIN1 EAC2 PO; +OXYC5 PO
--- NOTE | 2021-07-03 11:17 | NUR ---
Ambulatory in Day Surgery History, Chart, Medications and Allergies reviewed before start of procedure.Patient confirms NPO status and agrees with scheduled surgery. Pre-Op teaching done. Pt verbalizes understanding. Patient States Post-Procedure ride home has been arranged.
[2021-07-03] MEDS ORDERED: Norco 5-325 Ta1 EACH PO (11:41)
[2021-07-03] MEDS ORDERED: ACYC400 PO (11:41)
[2021-07-03] MEDS ORDERED: OXYC10TA19 PO (11:42)
--- NOTE | 2021-07-03 12:40 | NUR ---
07/03/21 1240 Darlyn Davila History, Chart, Medications and Allergies reviewed before start of procedure. Patient confirms NPO status and agrees with scheduled surgery. 3-LEAD EKG REVIEWED WITH PHYSICIAN PRIOR TO START OF PROCEDURE. MONITOR INTACT WITH CONTINUOUS PULSE OXIMETRY AND INTERMITTENT BP. PATIENT DETERMINED TO BE ASA APPROPRIATE FOR PROPOFOL SEDATION PRIOR TO START OF PROCEDURE BY DR. DIANA
--- NOTE | 2021-07-03 13:40 | NUR ---
Discharge instructions reviewed with patient. Patient verbalizes understanding. Copy given to patient to take home.
--- NOTE | 2021-07-03 13:56 | NUR ---
Discharged via wheelchair to private car for ride home.
[2021-07-04] MEDS ORDERED: MULTIPLE VITAM1 EACH PO (07:51)
[2021-07-04] MEDS ORDERED: VITAMIN D310 MC4 PO (07:52)
[2021-07-04] MEDS ORDERED: DHEA50 M2 PO (07:52)
[2021-07-04] MEDS ORDERED: FISH OIL (07:52)
== END 2021-07-03 13:57 | disposition home or self-care (01) ==
LOC: ORSCMMR 10:34 → ORD 12:00 → ORSCMMR 13:57
PROVIDERS: Surgery
PROC: 0DJD8ZZ Inspection of Lower Intestinal Tract, Via Natural or Artificial Opening Endoscopic (ICD-10-PCS; principal; 2021-07-03 12:00)
DX: Z93.3 Colostomy status (principal); Z87.19 Personal history of other diseases of the digestive system; K57.30 Diverticulosis of large intestine without perforation or abscess without bleeding; E66.9 Obesity, unspecified; Z68.30 Body mass index [BMI] 30.0-30.9, adult; Z79.899 Other long term (current) drug therapy
CPT/HCPCS: J2250; J2704; J7120

== ENCOUNTER 2021-07-04 07:11 | Inpatient (IN) | payer BC, OTHER ==
[~2021-07-04] VITALS: Ht 180.3 cm; Wt 100.8 kg
[~2021-07-04 07:11] MED LIST changes: +ACYC400 PO; +Norco 5-325 Ta1 EACH PO; +OXYC10TA19 PO
[2021-07-04] MEDS ORDERED: MULTIPLE VITAM1 EACH PO (07:51)
[2021-07-04] MEDS ORDERED: DHEA50 M2 PO (07:52)
[2021-07-04] MEDS ORDERED: VITAMIN D310 MC4 PO (07:52)
[2021-07-04] MEDS ORDERED: FISH OIL (07:52)
--- NOTE | 2021-07-04 08:32 | NUR ---
History, Chart, Medications and Allergies reviewed before start of procedure. Patient confirms NPO status and agrees with scheduled surgery. Lungs clear T/O to Auscultation. Outful from [facility] [place] was red-tinged. Reported this to Dr. Mccloud.
--- NOTE | 2021-07-04 08:55 | NUR ---
07/04/21 0855 Mackenzie Fink 0848- TIME OUT FOR EPIDURAL WITH DR FOOTE COMPLETED. 0851- START OF EPIDURAL INSERTION. CONINUOUS PULSE OX, 10L O2/NON-REBREATHER 0852- VERSED 2MG IV ADMINISTERED AT THE DIRECTION OF DR FOOTE, RECORDED ON EMAR 0854- EPIDURAL IS INSERTED.
--- NOTE | 2021-07-04 13:03 | NUR ---
PACU - EPIDURAL INSERTION SITE VISUALIZED WHEN PATIENT LAYING ON SIDE. NO SWELLING OR DRAINAGE NOTED. SECURED WELL WTIH CLEAR DRESSING AND TAPE.
--- NOTE | 2021-07-04 13:08 | NUR ---
REMAINS SLIGHTLY HYPOTENSIVE IN 80S-90S SYSTOLIC. PT WAS SAME THROUGHOUT OR CASE. ANESTHESIA AWARE. FREQUENT B/P CHECKS CONTINUE. ORDER FOR MEDS IF <80 SYSTOLIC.
--- NOTE | 2021-07-04 13:40 | NUR ---
EPIDURAL STARTED. 2 RN CHECK WITH YVETTE PEGUERO RN. CONT 8ML/HR BOLUS DOSE 4ML LOCKOUT EVERY 10 MIN 1 HR MAX 24 ML. PT REMAINS ON CARDIAC AND RESP MONITOR. WAKES EASILY AND ANSWERS ALL QUESTIONS. C/O ABDOMINAL PAIN FROM SURGERY AND BILATERAL ARM PAIN FROM POSITIONING DURING SURGERY. CAP REFILL BRISK. CMS INTACT TO BOTH HANDS AT THIS TIME. B/P HAS REMAINED IN MID TO HIGH 90'S TO LOW 100S SYSTOLIC. PT EDUCATED TO NOTIFY THIS RN IMMEDIATLY IF ANY NEW SYMPTOMS DEVELOP OR IF HE FEELS ANY DIFFERENT AFTER EPIDURAL STARTED.
--- NOTE | 2021-07-04 14:27 | NUR ---
SUMMARY - TOLERATING EPIDURAL WELL. B/P REMAINS >100 SYSTOLIC. PT STATE EFFECTIVE PAIN RELIEF. SENSATION IN TACT TO UPPER ABDOMEN. ABLE TO MOVE ALL EXTREMITIES. REPORT GIVEN TO RYAN ARMSTRONG ON SURGICAL FLOOR. EPIDURAL INSERTION SITE REMAINS WITHOUT SWELLING OR DRAINAGE. RESPIRATORY FUNCTION IN TACT. NO NAUSEA. PT TO ROOM 212 VIA BED.
--- NOTE | 2021-07-04 16:30 | NUR ---
DR DIANA AT BEDSIDE, PATIENT REPORTED WANTING TO GET UP TO HAVE BM, DR. DIANA GAVE THE OKAY TO ASSIST PATIENT TO BEDSIDE COMMODE W/ HIS EPIDURAL. 2 STAFF ASSISTED PATIENT TO BEDSIDE COMMODE, MINIMAL ASSISTANCE. DENIED ANY NUMBNESS OR TINGLING TO FEET/LEGS.
--- NOTE | 2021-07-04 19:07 | NUR ---
NO ACUTE CHANGES SINCE ARRIVAL TO UNIT. PATIENT TRANSFERED TO BEDSIDE COMMODE W/ 2 PERSON ASSIST, OKAY PER DR. TO. MULTIPLE LOOSE BM'S. CALIX IN PLACE, DRAINING CLEAR YELLOW URINE. EPIDURAL IN PLACE, DERMATONE CHECKS Q1 HOUR. DENIES PAIN TO ABDOMEN, REPORTS 2/10 PAIN TO SHOULDERS, MEDICATED PER EMAR W/ TORADOL PER DR. FOOTE. CALL LIGHT IN REACH, EDUCATED PATIENT COSMETIC CHEMIST LIGHT USE & SAFETY W/ EPIDURAL. WILL REPORT TO ONCOMING RN.
--- NOTE | 2021-07-05 03:51 | NUR ---
T11-L2 SENSATION RETURNING. PT CAN DISTINGUISH LIGHT TOUCH. STILL HAS NO TEMPRATURE SENSATION.
--- NOTE | 2021-07-05 03:53 | NUR ---
PT IS A&OX4, MODERATE ASSIST TO BSC, CALLS APPROPRIATELY. PT HAS EPIDURAL AND HAS LITTLE SENSATION TO T11-L2, CAN FEEL LIGHT TOUCH BUT CAN NOT DISTINGUISH HOT OR COLD TEMP. HAS ABDOMINAL DRESSING IN PLACE, DRESSING IS PUTTING OUT SMALL AMOUNDS OF SANGUINEOUS DRAINAGE. PT HAS SENSATION IN LOWER EXTREMETIES AND CAN AMBULATE TO BSC WITH ASSISTANCE. HAS CALIX IN PLACE, NO ISSUES. NO COMPLAINTS OF PAIN. WILL CONTINUE TO MONITOR THIS PATIENT
[2021-07-05 05:00] LABS: BASOPHILS ABSOLUTE AUTO 0.02 K/mm3 (0.00-0.23); BASOPHILS PERCENT AUTO 0 % (0-2); EOSINOPHILS ABSOLUTE AUTO 0.01 K/mm3 (0.00-0.68); EOSINOPHILS PERCENT AUTO 0 % (0-6); Hematocrit 45.1 % (37.0-53.0); Hemoglobin 15.3 g/dL (13.5-17.5); IMMATURE GRAN ABSOLUTE AUTO 0.08 K/mm3 (0.00-0.10); IMMATURE GRAN PERCENT AUTO 1 % (0-1); LYMPHOCYTES ABSOLUTE AUTO 2.01 K/mm3 (0.84-5.20); LYMPHOCYTES PERCENT AUTO 12 % (21-46); MONOCYTES ABSOLUTE AUTO 2.25 K/mm3 (0.16-1.47); MONOCYTES PERCENT AUTO 13 % (4-13); Mean Corpuscular HGB 31.5 pg (26.0-34.0); Mean Corpuscular HGB Conc 33.9 g/dL (31.5-36.5); Mean Corpuscular Volume 93 fL (80-100); Mean Platelet Volume 8.8 fL (9.1-12.4); NEUTROPHILS ABSOLUTE AUTO 12.77 K/mm3 (1.96-9.15); NEUTROPHILS PERCENT AUTO 75 % (41-73); Platelet Count 243 K/mm3 (150-400); RDW Coefficient Variation 13.2 % (11.7-14.2); RDW Standard Deviation 45.5 fL (35.1-46.3); Red Blood Cell Count 4.85 M/mm3 (4.30-5.90); White Blood Cell Count 17.14 K/mm3 (4.00-11.30)
[2021-07-05 05:24] LABS: Anion Gap 6 mmol/L (6-16); Blood Urea Nitrogen 17 mg/dL (8-24); Bun/Creatinine Ratio 14.2 (12.0-20.0); CO2, Blood 28 mmol/L (21-32); Calcium, Blood 7.7 mg/dL (8.5-10.1); Chloride, Blood 104 mmol/L (98-108); Glomerular Filtration Rate >60 (60-); Glucose, Blood 113 mg/dL (70-99); Potassium, Blood 3.7 mmol/L (3.5-5.5); Sodium, Blood 138 mmol/L (136-145)
--- NOTE | 2021-07-05 14:11 | NUR ---
Pt. is sitting up in chair and welcomes my visit. Pt. is pleasant and verbalizes gratitude for the care he has received. Establish rapport. Pt. has a strong ashley, but has not connected with a local fellowship for support. Pt. inquires about [facility], and this custom bike builder was able to give him some contact info. Pt. began to open up about regrets. Listen empathetically. Prayed for Pt. Pt. verbalized gratitude for the investement of time and the spiritual care visit.
--- NOTE | 2021-07-05 18:48 | NUR ---
SHIFT ASSESSMENT: PAIN CONTROLLED WITH TOWER OBSERVER; EPIDURAL CHECKS QH UNTIL 1600 WNL. VSS WNL. AMB BSC, W/I ROOM AND DOWN ENGLISH. CALIX CATH IN PLACE. MCKENZIE FLD. BROWN, LIQUID STOOL USING BSC. MIDLINE AND RLQ TAY DRESSINGS IN PLACE. I/S AT BEDSIDE. PRN BENADRYL C/O ITCHING. HERE AT END OF SHIFT TO VISIT. REPORT PROVIDED TO RYAN GONG.
--- NOTE | 2021-07-06 04:41 | NUR ---
PT IS A&OX4 INDEPENDENT IN ROOM AND IS ABLE TO MAKE NEEDS KNOWN. POST OP DAY 2 FOR OSTOMY TAKEDOWN, HAS EPIDURAL IN PLACE, BAG CHANGED AT 2200. HAS MIDLINE DRESSING WITH SANG DRAINAGE, TAY VAC IN PLACE. PT ABLE TO AMBULATE TO CHAIR INDEPENDENTLY. HAS CALIX IN PLACE FOR EPIDURAL, CALIX CATH IS PRODUCTIVE. PT SLEEPS BETWEEN CARES AND CALLS APPROPRIATELY. WILL CONTINUE TO MONITOR THIS PATIENT.
--- NOTE | 2021-07-06 17:39 | NUR ---
SHIFT SUMMARY: PAIN CONTROLLED WITH JOSS HOUSE KEEPER EPIDURAL; BAG CHANGED AT 1730. C/O CONT ITCHING RELIEVED W/ PRN BENADRYL PER EMAR Q6H. SELF-AMBULATING HALLS AND W/I ROOM. CALIX PATENT & DRAINING ORANGE URINE, DR DIANA AWARE. PASSING FLATUS AND SMALL, FORMED STOOL AT BSC. ADV DIET TOLERATED. TAY DRESSING MIDLINE AND LLQ INTACT; LEAVE IN PLACE PER DR SALDAÑA UNTIL 07/11/21.
--- NOTE | 2021-07-06 19:25 | NUR ---
SHIFT SUMMARY PT A&OX4, VSS/RA, CALIX PATENT & DRAINING YELLOW URINE, MCKENZIE PO REG DIET, AMBULATING INDEPENDENTLY IN HALLWAYS/UP IN ROOM. PAIN MANAGED WITH EPIDURAL. PLAN IS FOR EPIDURAL REMOVAL EARLY AM 07/07, LOVENOX TO BE HELD UNTIL 2 HOURS AFTER REMOVAL THEN CAN BE GIVEN, CALIX CAN BE REMOVED AFTER SENSATION RETURNS TO MIDABD/PELVIC. REPORT PROVIDED TO BELTRAN DAVIS.
--- NOTE | 2021-07-07 04:30 | NUR ---
PT KELLY&OX4, INDEPENDENT IN ROOM AND CALLS APPROPRIATELY. PT HAS EPIDURAL FOR PAIN, C/O ITCHING HAS PRN BENADRYL Q6H. CALIX IN PLACE, DRAINING CONCENTRATED YELLOW URINE. HAS HAD SOLID BMS THIS SHIFT, PT EDUCATED ON IMPORTANCE OF SCHEDULED STOOL SOFTENERS. HAS TAY DRESSING AND DRAINS, MIDLINE DRESING IS DIRTY WITH SANG DRAINAGE MD AWARE AND WILL CHANGE DRESSING POST D/C ON OUTPATIENT VISIT NEXT WEEK. PT ALSO HAS BRUISING ON L ABDOMINAL SIDE, MD IS AWARE. EPIDURAL SCHEDULED TO BE REMOVED THIS AM AND POSSIBLE D/C ON 07/08. WILL CONTINUE TO MONITOR.
[2021-07-07 15:54] LABS: Hematocrit 44.7 % (37.0-53.0); Hemoglobin 15.3 g/dL (13.5-17.5)
--- NOTE | 2021-07-07 16:12 | NUR ---
AT APPROX 1510 PT REPORTS EXCRUCIATING PAIN. ABDOMEN APPEARS SLIGHTLY MORE DISTENDED AND PT REPORTS ABDOMEN FEELING MORE TIGHT. MIDLINE TAY DRESSING SATURATED IN RED DRAINAGE, PT REPORTS THAT SURGEON HAD SEEN DRESSING THIS AM AND THAT IT REMAINED THE SAME. CONTACT TO DR DIANA MADE AT THAT TIME. SURGEON ORDERED H&H TO BE DONE STAT AND STATED THAT HE WOULD BE BY IN A BIT TO SEE THE PATIENT.
--- NOTE | 2021-07-07 17:56 | NUR ---
SHIFT SUMMARY ASSUMED CARE OF PATIENT AT APPROX 1315, AGREEABLE WITH PREVIOUS B[employer]IOGRAPHIC SERVICES SPECIALIST. A/O X4, IND IN ROOM. PT RESTING IN CHAIR AT THAT TIME. SINCE ASSUMING CARE, VITALS HAVE BEEN STABLE. PT REPORTS ORAL PAIN MEDICATION NOT HELPING HIS PAIN, SURGEON NOTIFIED. REPORTS PASSING FLATUS AND BOWEL MOVEMENTS. VOIDING WELL. NO NAUSEA OR VOMITING WITH MEALS. MIDLINE TAY DRESSING INTACT, HAS RED DRAINAGE- SUREON AWARE, TRANSVERSE C/D/I.
--- NOTE | 2021-07-08 03:22 | NUR ---
SUMMARY NO NEW ISSUES NOTED THIS EVENING. PTS PAIN MANAGED WELL PER EMAR. DRESSING SATURATED, PROVIDER AWARE. DRESSINGS ARE INTACT. PT AMBULATED, VOIDING, AND MULTIPLE BM'S NOTED. PT TOLLERATING PO INTAKE AT THIS TIME. PT CURRENTLY SLEEPING. CALL LIGHT IN REACH.
[2021-07-08] MEDS ORDERED: HYDMOR2 PO (10:26)
--- NOTE | 2021-07-08 13:01 | NUR ---
DISCHARGE: PT DC TO HOME AT THIS TIME WITH SPOUSE. VERBAL UNDERSTANDING OF INSTRUCTIONS, MEDICATIONS AND FOLLOW UP. SCRIPT GIVEN. IV DC'D WNL. PT LEFT AMBULATORY TO CAR.
== END 2021-07-08 12:40 | disposition home or self-care (01) | DRG 334 ==
LOC: MEDS 07:11 → SURS 07:11 → PRE IP 07:30 → SURS 14:15
PROVIDERS: ADMIT Surgery
PROC: 0DSM0ZZ Reposition Descending Colon, Open Approach (ICD-10-PCS; 2021-07-04)
PROC: 0DBP0ZZ Excision of Rectum, Open Approach (ICD-10-PCS; principal; 2021-07-04 08:45)
DX: Z43.3 Encounter for attention to colostomy (principal); Z87.891 Personal history of nicotine dependence; Z86.14 Personal history of Methicillin resistant Staphylococcus aureus infection; Z98.890 Other specified postprocedural states; Z79.899 Other long term (current) drug therapy
CPT/HCPCS: 36415; 80048; 85014; 85018; 85025; A9270; J0171; J0295; J0690; J1100; J1200; J1650; J1885; J2250; J2370; J2405; J2704; J2765; J3010; J7050; J7120; V2790

== ENCOUNTER → 2022-09-26 | Outpatient (CLI) | payer BC, OTHER ==
[~2022-09-26] MED LIST changes: +ACYC800 PO; +DHEA50 M2 PO; +FISH OIL; +HYDMOR2 PO; +LACT PO; +LOPE2C PO; +MULTIPLE VITAM1 EACH PO; +ONDA4ODT MM; +Percocet 5-3251 EACH PO; +VITAMIN D310 MC4 PO
[2022-09-26 15:44] LABS: BASOPHILS ABSOLUTE AUTO 0.05 K/mm3 (0.00-0.23); BASOPHILS PERCENT AUTO 0 % (0-2); EOSINOPHILS ABSOLUTE AUTO 0.06 K/mm3 (0.00-0.68); EOSINOPHILS PERCENT AUTO 0 % (0-6); Hematocrit 48.7 % (37.0-53.0); Hemoglobin 17.3 g/dL (13.5-17.5); IMMATURE GRAN ABSOLUTE AUTO 0.05 K/mm3 (0.00-0.10); IMMATURE GRAN PERCENT AUTO 0 % (0-1); LYMPHOCYTES ABSOLUTE AUTO 1.54 K/mm3 (0.84-5.20); LYMPHOCYTES PERCENT AUTO 11 % (21-46); MONOCYTES ABSOLUTE AUTO 1.76 K/mm3 (0.16-1.47); MONOCYTES PERCENT AUTO 12 % (4-13); Mean Corpuscular HGB 31.3 pg (26.0-34.0); Mean Corpuscular HGB Conc 35.5 g/dL (31.5-36.5); Mean Corpuscular Volume 88 fL (80-100); Mean Platelet Volume 8.7 fL (9.1-12.4); NEUTROPHILS PERCENT AUTO 76 % (41-73); Platelet Count 228 K/mm3 (150-400); RDW Coefficient Variation 14.6 % (11.7-14.2); RDW Standard Deviation 47.1 fL (35.1-46.3); Red Blood Cell Count 5.53 M/mm3 (4.30-5.90); White Blood Cell Count 14.36 K/mm3 (4.00-11.30)
[2022-09-26 16:08] LABS: Albumin, Blood 3.8 g/dL (3.4-5.0); Bilirubin, Total 0.5 mg/dL (0.1-1.0); Bun/Creatinine Ratio 13.5 (12.0-20.0); Calcium, Blood 9.4 mg/dL (8.5-10.1); Creatinine, Blood 1.11 mg/dL (0.60-1.20); Globulin, Blood 3.8 g/dL (2.2-4.0); Potassium, Blood 4.2 mmol/L (3.5-5.5); Total Protein, Blood 7.6 g/dL (6.4-8.2)
== END ==
LOC: LAB SHORT 15:39 → LAB 15:39
PROVIDERS: Physician Assistant
DX: R50.9 Fever, unspecified (principal); R53.83 Other fatigue
CPT/HCPCS: 80053; 85025

== ENCOUNTER 2022-09-28 09:34 | Emergency (ER) | payer BC, OTHER ==
[~2022-09-28] VITALS: Ht 180.3 cm; Wt 102.1 kg
[~2022-09-28 09:34] MED LIST changes: -ACYC800 PO; -LACT PO; -LOPE2C PO; -ONDA4ODT MM; -Percocet 5-3251 EACH PO
[2022-09-28 10:10] LABS: BASOPHILS ABSOLUTE AUTO 0.04 K/mm3 (0.00-0.23); BASOPHILS PERCENT AUTO 0 % (0-2); EOSINOPHILS ABSOLUTE AUTO 0.06 K/mm3 (0.00-0.68); EOSINOPHILS PERCENT AUTO 0 % (0-6); Hematocrit 48.5 % (37.0-53.0); Hemoglobin 16.6 g/dL (13.5-17.5); IMMATURE GRAN ABSOLUTE AUTO 0.06 K/mm3 (0.00-0.10); IMMATURE GRAN PERCENT AUTO 0 % (0-1); LYMPHOCYTES ABSOLUTE AUTO 1.44 K/mm3 (0.84-5.20); LYMPHOCYTES PERCENT AUTO 11 % (21-46); MONOCYTES ABSOLUTE AUTO 2.14 K/mm3 (0.16-1.47); MONOCYTES PERCENT AUTO 16 % (4-13); Mean Corpuscular HGB 30.2 pg (26.0-34.0); Mean Corpuscular HGB Conc 34.2 g/dL (31.5-36.5); Mean Corpuscular Volume 88 fL (80-100); Mean Platelet Volume 8.7 fL (9.1-12.4); NEUTROPHILS ABSOLUTE AUTO 9.71 K/mm3 (1.96-9.15); NEUTROPHILS PERCENT AUTO 72 % (41-73); Platelet Count 261 K/mm3 (150-400); RDW Coefficient Variation 14.5 % (11.7-14.2); RDW Standard Deviation 46.7 fL (35.1-46.3); White Blood Cell Count 13.45 K/mm3 (4.00-11.30)
[2022-09-28 10:18] LABS: Albumin, Blood 3.3 g/dL (3.4-5.0); Albumin/Globulin Ratio 0.8 (0.8-1.8); Bilirubin, Total 0.5 mg/dL (0.1-1.0); Bun/Creatinine Ratio 11.3 (12.0-20.0); Calcium, Blood 9.2 mg/dL (8.5-10.1); Creatinine, Blood 0.89 mg/dL (0.60-1.20); Globulin, Blood 4.1 g/dL (2.2-4.0); Potassium, Blood 4.3 mmol/L (3.5-5.5); Total Protein, Blood 7.4 g/dL (6.4-8.2)
[2022-09-28] MEDS ORDERED: LOPE2C PO (11:29)
[2022-09-28] MEDS ORDERED: ONDA4ODT MM (11:29)
[2022-09-28 11:48] VITALS: BP 131/84
== END 2022-09-28 12:17 | disposition home or self-care (01) ==
LOC: ER 09:34
PROVIDERS: Emergency Medicine
DX: E86.0 Dehydration (principal); R19.7 Diarrhea, unspecified; R51.9 Headache, unspecified; M13.80 Other specified arthritis, unspecified site; Z87.891 Personal history of nicotine dependence
CPT/HCPCS: 80053; 82550; 85025; 96361; 96374; 96375; 99284-25; J0780; J1100; J1200; J1885; J7030

== ENCOUNTER 2022-09-30 19:55 | Inpatient (IN) | payer BC, OTHER ==
[~2022-09-30] VITALS: Ht 180.3 cm; Wt 106.7 kg
[~2022-09-30 19:55] MED LIST changes: +LOPE2C PO; +ONDA4ODT MM
[2022-09-30 21:01] LABS: BASOPHILS ABSOLUTE AUTO 0.06 K/mm3 (0.00-0.23); BASOPHILS PERCENT AUTO 1 % (0-2); EOSINOPHILS ABSOLUTE AUTO 0.21 K/mm3 (0.00-0.68); EOSINOPHILS PERCENT AUTO 2 % (0-6); Hemoglobin 15.6 g/dL (13.5-17.5); IMMATURE GRAN ABSOLUTE AUTO 0.16 K/mm3 (0.00-0.10); IMMATURE GRAN PERCENT AUTO 1 % (0-1); LYMPHOCYTES ABSOLUTE AUTO 1.43 K/mm3 (0.84-5.20); LYMPHOCYTES PERCENT AUTO 11 % (21-46); MONOCYTES ABSOLUTE AUTO 1.61 K/mm3 (0.16-1.47); MONOCYTES PERCENT AUTO 13 % (4-13); Mean Corpuscular HGB 30.6 pg (26.0-34.0); Mean Corpuscular HGB Conc 34.7 g/dL (31.5-36.5); Mean Corpuscular Volume 88 fL (80-100); Mean Platelet Volume 8.7 fL (9.1-12.4); NEUTROPHILS ABSOLUTE AUTO 9.15 K/mm3 (1.96-9.15); NEUTROPHILS PERCENT AUTO 72 % (41-73); NRBC ABSOLUTE 0.02 K/mm3 (0.00-0.02); NRBC Auto 0.2 /100 WBC (0.0-0.2); Platelet Count 318 K/mm3 (150-400); RDW Coefficient Variation 15.1 % (11.7-14.2); RDW Standard Deviation 48.8 fL (35.1-46.3); White Blood Cell Count 12.62 K/mm3 (4.00-11.30)
[2022-09-30 21:20] LABS: Albumin, Blood 2.6 g/dL (3.4-5.0); Albumin/Globulin Ratio 0.7 (0.8-1.8); Bilirubin, Total 0.3 mg/dL (0.1-1.0); Bun/Creatinine Ratio 14.4 (12.0-20.0); Calcium, Blood 8.4 mg/dL (8.5-10.1); Creatinine, Blood 1.18 mg/dL (0.60-1.20); Globulin, Blood 3.9 g/dL (2.2-4.0); Potassium, Blood 4.3 mmol/L (3.5-5.5); Total Protein, Blood 6.5 g/dL (6.4-8.2)
[2022-09-30 21:37] LABS: Base Excess Venous 2.1 mmol/L; Bicarbonate Venous 25.9 mmol/L (24.0-30.0); PCO2 Venous 40.2 mmHg (38-42); pH Blood Venous 7.43 (7.34-7.37)
[2022-09-30 23:14] LABS: Source, Urine Clean Catch
[2022-09-30 23:18] LABS: Bilirubin, Urine Neg (Neg); Blood, Urine Neg (Neg); Glucose Qualitative, Urine Neg (Neg); Ketones, Urine Neg (Neg); Leukocyte Esterase, Urine 1+ (Neg); Nitrite, Urine Neg (Neg); Protein, Urine 2+ (Neg); Specific Gravity, Urine 1.005 (1.003-1.022); Urobilinogen, Urine NORM (Normal)
[2022-09-30 23:21] LABS: Appearance, Urine Clear (Clear); Color, Urine Yellow (P-Yellow)
[2022-09-30 23:26] LABS: Bacteria Not Seen /hpf; Red Blood Cells, Urine Not Seen /hpf (0-2); Squamous Epithelial Cells Not Seen /hpf (Few); White Blood Cells, Urine 0-2 /hpf (0-5)
[2022-09-30 23:38] LABS: U Amphetamine Screen Not Detected; U Barbituate Screen Not Detected; U Benzodiazapine Screen Not Detected; U Buprenorphine Screen Not Detected; U Cannabinoids Screen Not Detected; U Cocaine Screen Not Detected; U Methadone Screen Not Detected; U Methamphetamine Screen Not Detected; U Opiates Screen DETECTED; U Oxycodone Screen Not Detected; U Phencyclidine Screen Not Detected; U Propoxyphene Screen Not Detected
[2022-09-30 23:43] LABS: Adenovirus Not Detected (NOT DETECT); Bordetella pertussis Not Detected (NOT DETECT); Chlamydophila pneumoniae Not Detected (NOT DETECT); Coronavirus 229E Not Detected (NOT DETECT); Coronavirus HKU1 Not Detected (NOT DETECT); Coronavirus NL63 Not Detected (NOT DETECT); Coronavirus OC43 Not Detected (NOT DETECT); Human Metapneumovirus Not Detected (NOT DETECT); Human Rhinovirus/Enterovirus Not Detected (NOT DETECT); Influenza A/2009-H1 Not Detected (NOT DETECT); Influenza A/H1 Not Detected (NOT DETECT); Influenza A/H3 Not Detected (NOT DETECT); Influenza B Not Detected (NOT DETECT); Mycoplasma pneumoniae Not Detected (NOT DETECT); Parainfluenza Virus 1 Not Detected (NOT DETECT); Parainfluenza Virus 2 Not Detected (NOT DETECT); Parainfluenza Virus 3 Not Detected (NOT DETECT); Parainfluenza Virus 4 Not Detected (NOT DETECT); Respiratory Syncytial Virus Not Detected (NOT DETECT); SARS-Cov-2 (COVID-19), BioFire Not Detected (NOT DETECT)
[2022-10-01 02:44] VITALS: BP 156/131
[2022-10-01 04:11] VITALS: BP 117/69
--- NOTE | 2022-10-01 04:40 | NUR ---
ADMISSION NOTES: PATIENT ARRIVES IN ROOM AT 0238 FROM ER FOR DX OF SEPSIS. PATIENT A&OX4. ANXIOUS. REPORTS ROGERS 12/25. MEDICATED x1 c IV DILAUDID. PATIENT REPORTS PAIN DOWN TO 10/25. TEMP OF 100.1, MEDICATED X1 c PO TYLENOL. TEMP WAS RECHECKED AND WAS DOWN TO 99.8. TACHYCARDIC. PATIENT RECEIVED IV ABX PER ORDER. PER PATIENT SPOUSE PATIENT HAD "ACTIVE HERPES DOWN ON HIS PENIS AREA THREE WEEKS AGO AND WAS PRESCRIBED c ACYCLOVIR CREAM AND COMPLETELY GONE, THEN SHE NOTICED YESTERDAY 09/30/22 IT APPEAR ON HIS L LOWER LIP." THIS RN REPORTS TO [employer], MENDOZA MELGAR REGARDING THIS ISSUES. PER MENDOZA TO PLACED PATIENT ON CONTACT ISOLATION. PATIENT AMBULATES TO BATHROOM c SBA. PIV TO LAC AND L FOREARM SALINE LOCKED. VITAL SIGNS REVIEWED. MEDRIC AND ADMISSION ASSESSMENT COMPLETE. CALL LIGHT IN REACH. PATIENT EDUCATED NON SMOKING POLICY, IGNITION SOURCES AND RISK OF INJURY. PATIENT DENIES SMOKING AND STATED UNDERSTANDING.
[2022-10-01 05:48] LABS: BASOPHILS ABSOLUTE AUTO 0.05 K/mm3 (0.00-0.23); BASOPHILS PERCENT AUTO 0 % (0-2); EOSINOPHILS ABSOLUTE AUTO 0.15 K/mm3 (0.00-0.68); EOSINOPHILS PERCENT AUTO 1 % (0-6); Hematocrit 43.9 % (37.0-53.0); Hemoglobin 15.1 g/dL (13.5-17.5); IMMATURE GRAN ABSOLUTE AUTO 0.17 K/mm3 (0.00-0.10); IMMATURE GRAN PERCENT AUTO 1 % (0-1); LYMPHOCYTES ABSOLUTE AUTO 0.67 K/mm3 (0.84-5.20); LYMPHOCYTES PERCENT AUTO 5 % (21-46); MONOCYTES ABSOLUTE AUTO 0.91 K/mm3 (0.16-1.47); MONOCYTES PERCENT AUTO 7 % (4-13); Mean Corpuscular HGB 30.6 pg (26.0-34.0); Mean Corpuscular HGB Conc 34.4 g/dL (31.5-36.5); Mean Corpuscular Volume 89 fL (80-100); Mean Platelet Volume 8.7 fL (9.1-12.4); NEUTROPHILS ABSOLUTE AUTO 11.59 K/mm3 (1.96-9.15); NEUTROPHILS PERCENT AUTO 86 % (41-73); Platelet Count 309 K/mm3 (150-400); RDW Coefficient Variation 15.3 % (11.7-14.2); RDW Standard Deviation 50.4 fL (35.1-46.3); Red Blood Cell Count 4.93 M/mm3 (4.30-5.90); White Blood Cell Count 13.54 K/mm3 (4.00-11.30)
[2022-10-01 06:18] LABS: Bun/Creatinine Ratio 16.2 (12.0-20.0); Creatinine, Blood 1.11 mg/dL (0.60-1.20)
[2022-10-01 07:55] VITALS: BP 141/66
[2022-10-01 10:48] LABS: International Normalized Ratio 1.17; Prothrombin Time Results 12.2 Sec (9.7-11.5)
[2022-10-01 16:35] VITALS: BP 154/89
[2022-10-01 17:40] LABS: Appearance, CSF Clear (Clear); Color, CSF No Color (No Color); RBC Count, CSF 6 /mm3 (0-0); WBC Count, CSF 3 /mm3 (0-5)
[2022-10-01 18:47] LABS: Cryptococcus Neoformans/Gattii Not Detected (NOT DETECT); Enterovirus Not Detected (NOT DETECT); Escherichia Coli K1 Not Detected (NOT DETECT); Haemophilus Influenza Not Detected (NOT DETECT); Herpes Simplex Virus 1 Not Detected (NOT DETECT); Herpes Simplex Virus 2 Not Detected (NOT DETECT); Human Herpesvirus 6 Not Detected (NOT DETECT); Human Parechovirus Not Detected (NOT DETECT); Listeria Monocytogenes Not Detected (NOT DETECT); Neisseria Meningitidis Not Detected (NOT DETECT); Streptococcus Agalactiae Not Detected (NOT DETECT); Streptococcus Pneumoniae Not Detected (NOT DETECT); Varicella Zoster Virus Not Detected (NOT DETECT)
--- NOTE | 2022-10-01 19:40 | NUR ---
SHIFT SUMMARY: PT A/O X 4 IND PLEASANT AND COOPERATIVE. PT TOLERATED LUMBAR PUNCTURE TODAY. CSF SENT TO LAB. PT ROGERS CONTINUES AT 10/25. MANAGED WITH DILAUDID 2 MG AND TYLENOL AT THIS TIME. PT ON RA, DENIES SOB WITH ACTIVITY. PT AND SPOUSE EDUCATED ON DANGERS OF USING IGNITION MATERIALS AND SMOKING IN THE HOSPITAL. PT/SP VU AND PT STATED HE DID NOT HAVE IGNITION SOURCES. SPOUSE STATED SHE HAD VAPE PEN. SHE WAS REQUESTED TO REMOVE AND LEAVE IN HER VEHICLE AND SPOUSE STATED SHE WOULD PUT VAPE PEN IN HER CAR AND LEFT THE UNIT AND CAME BACK. NO EVIDENCE OF USING IGNITION SOURCES IN THE ROOM WHILE ROUNDING.
[2022-10-01 20:42] VITALS: BP 156/92
[2022-10-02 02:09] VITALS: BP 116/75
--- NOTE | 2022-10-02 05:02 | NUR ---
PATIENT REMAINS ALERT AND ORIENTED X4, CALLS TO MAKE NEEDS KNOWN, VSS, IV SL IN BETWEEN ABT'S, PAIN/ROGERS TREATED PER MAR AT BEGINNING OF SHIFT, IND IN ROOM AND NO OTHER ISSUES TO REPORT. WILL CONT TO MONITOR.
[2022-10-02 05:42] LABS: BASOPHILS ABSOLUTE AUTO 0.03 K/mm3 (0.00-0.23); BASOPHILS PERCENT AUTO 0 % (0-2); EOSINOPHILS PERCENT AUTO 0 % (0-6); Hematocrit 42.8 % (37.0-53.0); Hemoglobin 14.7 g/dL (13.5-17.5); IMMATURE GRAN ABSOLUTE AUTO 0.21 K/mm3 (0.00-0.10); IMMATURE GRAN PERCENT AUTO 1 % (0-1); LYMPHOCYTES ABSOLUTE AUTO 1.09 K/mm3 (0.84-5.20); LYMPHOCYTES PERCENT AUTO 7 % (21-46); MONOCYTES ABSOLUTE AUTO 1.74 K/mm3 (0.16-1.47); MONOCYTES PERCENT AUTO 11 % (4-13); Mean Corpuscular HGB 30.1 pg (26.0-34.0); Mean Corpuscular HGB Conc 34.3 g/dL (31.5-36.5); Mean Corpuscular Volume 88 fL (80-100); Mean Platelet Volume 8.9 fL (9.1-12.4); NEUTROPHILS ABSOLUTE AUTO 13.33 K/mm3 (1.96-9.15); NEUTROPHILS PERCENT AUTO 81 % (41-73); Platelet Count 356 K/mm3 (150-400); RDW Coefficient Variation 14.8 % (11.7-14.2); Red Blood Cell Count 4.88 M/mm3 (4.30-5.90)
[2022-10-02 07:05] LABS: Bun/Creatinine Ratio 26.3 (12.0-20.0); Creatinine, Blood 0.76 mg/dL (0.60-1.20); Potassium, Blood 4.4 mmol/L (3.5-5.5)
[2022-10-02 08:00] VITALS: BP 124/80
[2022-10-02 13:44] LABS: Vancomycin, Trough 8.2 ug/mL (5.0-10.0)
[2022-10-02] MEDS ORDERED: LACT PO (15:24)
[2022-10-02] MEDS ORDERED: Percocet 5-3251 EACH PO (15:24)
[2022-10-02] MEDS ORDERED: ACYC800 PO (15:24)
[2022-10-02] MEDS ORDERED: AMOCLA875 PO (15:25)
--- NOTE | 2022-10-02 16:48 | NUR ---
DISCHARGE SUMMARY: PT AND SPOUSE EDUCATED ON DISCHARGE INSTRUCTIONS AND MEDICATIONS. PT VU. PT HAS FOLLOW-UP APPT SCHEDULED ON SATURDAY WITH [facility]. PT REQUESTED TIME OFF WORK NOTE FROM . DR. TAVARES GAVE NOTE THROUGH 10/05/22 AND PT TO FOLLOW-UP WITH PROVIDER. ASSISTED PT WITH PACKING BELONGINGS. PT DENIED NEED FOR WC TRANSPORT AND ESCORT. PT AMBULATED OUT WITH WITH BELONGINGS.
== END 2022-10-02 16:34 | disposition home or self-care (01) | DRG 871 ==
LOC: ER 19:55 → MEDS 10-01 02:06 → ENPENDDIS 10-02 14:27 → MEDS 10-02 16:34
PROVIDERS: Emergency Medicine; Family Medicine; Hospitalist; ADMIT Internal Medicine
PROC: 00JU3ZZ Inspection of Spinal Canal, Percutaneous Approach (ICD-10-PCS; principal; 2022-09-30)
PROC: 3E03329 Introduction of Other Anti-infective into Peripheral Vein, Percutaneous Approach (ICD-10-PCS; 2022-10-01)
DX: A41.9 Sepsis, unspecified organism (principal); J18.9 Pneumonia, unspecified organism; J90 Pleural effusion, not elsewhere classified; E88.09 Other disorders of plasma-protein metabolism, not elsewhere classified; R51.9 Headache, unspecified; Z20.822 Contact with and (suspected) exposure to COVID-19; R19.7 Diarrhea, unspecified; B00.1 Herpesviral vesicular dermatitis; R90.82 White matter disease, unspecified; Z79.899 Other long term (current) drug therapy; Z87.81 Personal history of (healed) traumatic fracture; Z98.890 Other specified postprocedural states; Z87.891 Personal history of nicotine dependence
CPT/HCPCS: 0202U; 36415; 62270; 70450; 71045; 74177; 80048; 80053; 80202; 81001; 82042; 82803; 82945; 83605; 83615; 84145; 84157; 85025; 85610; 85730; 87483; 89051; 93005; 93010; 96365-59; 96366-59; 96367-59; 96375-59; 96376-59; 99285-25; A9270; J0133; J0696; J1100; J1170; J1650; J1885; J2405; J3370; J7030; J7040; J7050; J7060; J8499; Q9967